=== PATIENT | female | born 1985 ===

== ENCOUNTER 2022-03-21 16:54 | Emergency (ER) | payer SELFPAY ==
[2022-03-21] MEDS ORDERED: Sodium Chloride 0.9% 10 ML Syringe FLUSH PRN (17:33)
[2022-03-21] MEDS ORDERED: MVI, Adult with Vitamin K 10 ML, Folic Acid 1 MG, Thiamine 100 MG in Lactated Ringers 1... IV ONE ×4 (17:33)
[2022-03-21 18:41] LABS: ANION GAP 20.1 mEq/L (7-13); CHLORIDE,CL 103 mmol/L (98-107); SODIUM,NA 141 mmol/L (136-145)
[2022-03-21 18:47] LABS: ACETAMINOPHEN 0 ug/mL (10-30 (Therapeutic)); ESTIMATED GFR 115 mL/min (>=60)
[2022-03-21 18:56] LABS: AMPHETAMINES,URINE NEGATIVE (NEGATIVE); BARBITURATES,URINE NEGATIVE (NEGATIVE); BENZODIAZEPINE,URINE NEGATIVE (NEGATIVE); MDMA (ECSTASY), URINE NEGATIVE (NEGATIVE); METHADONE,URINE NEGATIVE (NEGATIVE); METHAMPHETAMINES,URINE NEGATIVE (NEGATIVE); OPIATES,URINE NEGATIVE (NEGATIVE); OXYCODONE,URINE NEGATIVE (NEGATIVE); PHENCYCLIDINE,URINE NEGATIVE (NEGATIVE); TCA,URINE NEGATIVE (NEGATIVE)
[2022-03-21 19:55] LABS: CORONAVIRUS COVID-19 NAA NEGATIVE (NEGATIVE)
== END 2022-03-21 19:16 ==
LOC: DL.ED 16:54
DX: O99.312 Alcohol use complicating pregnancy, second trimester (principal); F10.129 Alcohol abuse with intoxication, unspecified; Z88.5 Allergy status to narcotic agent; Z79.82 Long term (current) use of aspirin; Z20.822 Contact with and (suspected) exposure to COVID-19; Y90.8 Blood alcohol level of 240 mg/100 ml or more; Z3A.20 20 weeks gestation of pregnancy
CPT/HCPCS: 0240U; 36415; 80053; 80143; 80179; 80305; 80307; 81001; 84484; 85025; 87086; 93005; 93010; 96365; 99284; 99285; J3411; J3490; J7120